=== PATIENT | female | born 1935 | race Caucasian/White ===

== ENCOUNTER → 2021-03-29 | Outpatient (CLI) | payer MEDICARE ==
[~2021-03-29] MED LIST: ALDACTONE25 MG PO; AMIODARONE HCL100 MG PO; ASPIRIN EC81 MG PO; AVAPRO300 MG PO; B-12500 MCG PO; CALCIUM 600 +1 EAC4 PO; CARDIZEM CD180 MG PO; CARDURA1 MG PO; CATAPRES 0.1MG0.1 MG PO; CYMBALTA 30 MG30 MG PO; ELIQUIS2.5 MG PO; K-DUR TAB 20 M20 MEQ PO; LASIX20 MG PO; MEGACE TAB 20 M20 MG PO; METOPROLOL SUC100 MG PO; METOPROLOL SUCC25 MG PO; PANTOPRAZOLE SO40 MG PO; POLY-IRON150 MG PO; PRAVACHOL20 MG PO; PROBIOTIC1 EAC1 PO; SINGULAIR10 MG PO
== END ==
LOC: HEART CORB 11:07
DX: I48.21 Permanent atrial fibrillation (principal); I08.0 Rheumatic disorders of both mitral and aortic valves; I27.20 Pulmonary hypertension, unspecified
CPT/HCPCS: 93306